=== PATIENT | male | born 1995 | race Caucasian/White ===

== ENCOUNTER 2017-05-06 19:12 | Emergency (ER) | payer SELFPAY ==
[2017-05-06 19:31] VITALS: BP 142/82
[2017-05-06] MEDS ORDERED: Lidocaine 1% 20 ML MDV INJECT ONE (19:55)
[2017-05-06] MEDS ORDERED: Bacitracin Oint 1 GM U/D Packet TOP ONE (20:12)
--- NOTE | 2017-05-06 20:15 | EDM.PDOC ---
ED HPI GENERAL MEDICAL PROBLEM - General Chief Complaint: Skin Complaint Stated Complaint: WOUND ON STOMACH Time Seen by Provider: 05/06/17 20:00 Source of Information: Reports: Patient History Limitations: Reports: No Limitations - History of Present Illness INITIAL COMMENTS - FREE TEXT/NARRATIVE: Cristhian is a 22 year old male who presents to the ED today with c/o wound to abdomen for the last few days, tried popping it, just got blood back. No fever/ chills/nausea/vomiting. Duration: Day(s): abd cyst Pain Score (Numeric/FACES): 7 - Related Data Allergies Allergy/AdvReac Type Severity Reaction Status Date / Time No Known Allergies Allergy Verified 05/06/17 19:31 Home Meds: Home Meds NK [No Known Home Meds] 05/06/17 [History] Past Medical History - Past Health History Medical/Surgical History: Denies Medical/Surgical History Hematologic History: Reports: None Immunologic History: Reports: None Oncologic (Cancer) History: Reports: None Social & Family History - Tobacco Use Smoking Status *Q: Current Every Day Smoker Years of Tobacco use: 5 Packs/Tins Daily: 0.2 - Caffeine Use Caffeine Use: Reports: Coffee - Alcohol Use Days Per Week of Alcohol Use: 1 Number of Drinks Per Day: 4 Total Drinks Per Week: 4 - Recreational Drug Use Recreational Drug Use: No ED ROS GENERAL - Review of Systems Review Of Systems: ROS reveals no pertinent complaints other than HPI. ED EXAM, SKIN/RASH Exam: See Below Exam Limited By: No Limitations General Appearance: Alert, WD/WN, No Apparent Distress Neck: Normal Inspection, Supple, Non-Tender Respiratory/Chest: No Respiratory Distress, Lungs Clear, Normal Breath Sounds Cardiovascular: Normal Peripheral Pulses, Regular Rate, Rhythm, No Murmur GI/Abdominal: Normal Bowel Sounds, Soft, Non-Tender Extremities: Normal Inspection Neurological: Alert, Oriented Psychiatric: Normal Affect, Normal Mood Skin: Other (abscess to right upper abdomen, mild lateral fluctuance, remaining is indurated, tender to palpation, erythematous, no surrounding cellulitis, approx 2 cm in diameter) Course - Vital Signs Text/Narrative:: Cristhian is a 22 year old male who presents to the ED today with c/o wound to upper right abdomen. Patient on exam is well hydrated, he is non-toxic appearing , he does have abscess, mild fluctuance. Discussed I and D which patient agreed to. Area anesthetized with 10 ml lidocaine 1%, straight incision made with 11 blade, moderate amounts of blood and purulent drainage returned. Area has no tracking, no room for packing, bacitracin and dressing applied. Will start patient on bactrim. Bacitracin and wound care discussed, f/u with pcp in one week, return to the Ed with any complications or worsening symptoms. Patient agreeable and discharged in stable condition. Last Recorded V/S: Last Vital Signs Temp 37.0 C 05/06/17 19:35 Pulse 81 05/06/17 19:35 Resp 14 05/06/17 19:35 BP 142/82 H 05/06/17 19:35 Pulse Ox 94 L 05/06/17 19:35 - Orders/Labs/Meds Meds: Medications Discontinued Medications Generic Name Dose Route Start Last Admin Trade Name Freq PRN Reason Stop Dose Admin Lidocaine HCl 20 ml 05/06/17 19:55 05/06/17 20:01 Xylocaine 1% INJECT 05/06/17 19:56 20 ml ONETIME ONE Administration Departure - Departure Time of Disposition: 20:30 Disposition: Home, Self-Care 01 Clinical Impression: Abscess - Discharge Information Instructions: Abscess Forms: ED Department Discharge Additional Instructions: Keep wound clean Take Bactrim as prescribed. Bacitracin twice daily to wound F/u in clinic in one week Return to the ED with any complications.
== END 2017-05-06 20:24 | disposition home or self-care (01) ==
LOC: JP.ED 19:12
DX: L02.211 Cutaneous abscess of abdominal wall (principal); F17.210 Nicotine dependence, cigarettes, uncomplicated
CPT/HCPCS: 10060; 99283-25